=== PATIENT | male | born 1955 | race Caucasian/White ===

== ENCOUNTER 2017-08-19 05:28 | Emergency (ER) | payer MEDICAID ==
[2017-08-19 06:04] VITALS: BP 145/92
--- NOTE | 2017-08-19 06:09 | EDM.PDOC ---
ED HPI GENERAL MEDICAL PROBLEM - General Chief Complaint: Genitourinary Problem Stated Complaint: kidney stone Time Seen by Provider: 08/19/17 05:50 Source of Information: Reports: Patient History Limitations: Reports: No Limitations - History of Present Illness INITIAL COMMENTS - FREE TEXT/NARRATIVE: 62 yr male presents with right sided flank pain. Pain to lower right abdomen and lower right back pain. States pain started around 330am. States he has had a kidney stone in the past and this feels like that. States he has been drinking fluids ok. States pain is intermittent. States BM yesterday and no change in BM. Pt just voided about 50cc urine and states no blood to urine. - Related Data Allergies Allergy/AdvReac Type Severity Reaction Status Date / Time metformin AdvReac Diarrhea Verified 11/18/15 10:54 Home Meds: Home Meds Fish Oil/DHA/EPA [Fish Oil 1,200 MG] 1 cap PO DAILY 03/13/15 [History] Hydrochlorothiazide/Lisinopril [Lisinopril-HCTZ 20-25 MG] 20 - 25 tab PO DAILY 03/13/15 [History] Hydrocortisone/Pramoxine [Procort 1.85%-1.15%] 1 applic RECTAL QID PRN 03/13/15 [History] Lansoprazole [Prevacid] 15 mg PO DAILY 03/13/15 [History] Loratadine [Claritin] 10 mg PO DAILY 03/13/15 [History] Multivitamins [Tab-A-Melissa] 1 tab PO DAILY 03/13/15 [History] Pioglitazone HCl [Actos] 45 mg PO DAILY 03/13/15 [History] Triamcinolone Acetonide [Triamcinolone Acetonide 0.1% Crm] 1 applic TOP BID [History] amLODIPine [Norvasc] 10 mg PO DAILY 03/13/15 [History] Ibuprofen [Ibuprofen] 800 mg PO TID 11/18/15 [History] Orphenadrine [Take Home: Orphenadrine 100 MG, 4 Tab Pack] 10 mg PO BID 11/18/15 [History] Past Medical History HEENT History: Reports: Impaired Vision Cardiovascular History: Reports: Hypertension Respiratory History: Reports: None Gastrointestinal History: Reports: GERD, Other (See Below) Other Gastrointestinal History: HX INTERNAL HEMORRHOIDS Genitourinary History: Reports: None Musculoskeletal History: Reports: Back Pain, Chronic, Osteoarthritis, RA Other Musculoskeletal History: shoulder arthritis, R knee quad tendon repair x2 , fx leg as kid casted Neurological History: Reports: None Psychiatric History: Reports: None Endocrine/Metabolic History: Reports: Diabetes, Type II Other Endocrine/Metabolic History: NIDDM TYPE 2 Hematologic History: Reports: None Immunologic History: Reports: None Oncologic (Cancer) History: Reports: None Dermatologic History: Reports: None - Infectious Disease History Infectious Disease History: Reports: Chicken Pox, Measles - Past Surgical History Other Cardiovascular Surgeries/Procedures: HX HYPERTENSION Musculoskeletal Surgical History: Reports: Hip Replacement, Other (See Below) Other Musculoskeletal Surgeries/Procedures:: Right knee tendon repair x2 Social & Family History - Tobacco Use Smoking Status *Q: Never Smoker Second Hand Smoke Exposure: No - Recreational Drug Use Recreational Drug Use: No ED ROS GENERAL - Review of Systems Review Of Systems: See Below Constitutional: Reports: No Symptoms Respiratory: Reports: No Symptoms. Denies: Shortness of Breath, Wheezing Cardiovascular: Reports: No Symptoms. Denies: Chest Pain GI/Abdominal: Reports: Abdominal Pain, Nausea. Denies: Black Stool, Bloody Stool, Constipation, Diarrhea : Reports: Flank Pain. Denies: Dysuria, Hematuria Musculoskeletal: Reports: No Symptoms. Denies: Neck Pain, Shoulder Pain, Back Pain Skin: Reports: No Symptoms Neurological: Reports: No Symptoms Psychiatric: Reports: No Symptoms Hematologic/Lymphatic: Reports: No Symptoms ED EXAM, RENAL/ - Physical Exam Exam: See Below Exam Limited By: No Limitations General Appearance: Alert, No Apparent Distress Ears: Hearing Grossly Normal Nose: Normal Inspection, Normal Mucosa Throat/Mouth: Normal Lips, Normal Teeth, No Airway Compromise Head: Atraumatic, Normocephalic Neck: Normal Inspection, Supple, Non-Tender Respiratory/Chest: No Respiratory Distress, Lungs Clear, Normal Breath Sounds Cardiovascular: Normal Peripheral Pulses, Regular Rate, Rhythm GI/Abdominal: Normal Bowel Sounds, Soft, Tender (tender to right lower abdomen and into right middle back with palpation). No: Distended, Rigid, Rebound Back Exam: Normal Inspection Extremities: Normal Inspection, Normal Range of Motion Neurological: Alert, Oriented, Normal Cognition, Normal Gait Psychiatric: Normal Affect, Normal Mood Skin Exam: Warm, Normal Color, Other (skin is moist at times, when nausea increases and when pain increases). No: Increased Warmth Lymphatic: No Adenopathy Course - Vital Signs Last Recorded V/S: Last Vital Signs Temp 98.3 F 08/19/17 05:40 Pulse 92 08/19/17 05:40 Resp 12 08/19/17 05:40 BP 145/92 H 08/19/17 05:40 Pulse Ox 97 08/19/17 05:40 - Orders/Labs/Meds Labs: Laboratory Tests 08/19/17 08/19/17 08/19/17 Range/Units 06:08 06:30 06:30 WBC 8.9 (4.0-11.0) K/uL RBC 4.80 (4.50-6.50) M/uL Hgb 14.9 (13.0-18.0) g/dL Hct 44.2 (40.0-54.0) % MCV 92 (76-96) fL MCH 31.0 (27.0-32.0) pg MCHC 33.7 (31.0-35.0) g/dL RDW 15.2 (11.0-16.0) % Plt Count 244 (150-400) K/uL MPV 9.9 (6.0-10.0) fL Neut % (Auto) 74.4 H (45.0-70.0) % Lymph % (Auto) 18.5 L (20.0-40.0) % [place] % (Auto) 5.1 (3.0-10.0) % Eos % (Auto) 1.7 (1.0-5.0) % Baso % (Auto) 0.3 (0.0-0.5) % Neut # (Auto) 6.65 (2.00-7.50) K/uL Lymph # (Auto) 1.65 (1.50-4.00) K/uL [place] # (Auto) 0.46 (0.20-0.80) K/uL Eos # (Auto) 0.15 (0.04-0.40) K/uL Baso # (Auto) 0.03 (0.02-0.10) K/uL Sodium 139 (136-145) mmol/L Potassium 3.2 L (3.5-5.1) mmol/L Chloride 101 (98-107) mmol/L Carbon Dioxide 26.1 (21.0-32.0) mmol/L Anion Gap 15.1 H (5.0-15.0) mmol/L BUN 22 (8-26) mg/dL Creatinine 1.19 D (0.70-1.30) mg/dL Est Cr Clr Drug Dosing 71.55 mL/min Estimated GFR (MDRD) > 60 (>60) MLS/MIN BUN/Creatinine Ratio 18.5 (6-25) Glucose 181 H D (74-100) mg/dL Calcium 9.0 (8.5-10.1) mg/dL Amylase (25-115) U/L Lipase (73-393) U/L Urine Color Yellow Urine Appearance Clear (CLEAR) Urine pH 5.0 (5.0-8.0) Ur Specific [place] >= 1.030 (1.003-1.030) Urine Protein Negative (NEGATIVE) mg/dL Urine Glucose (UA) Negative (NEGATIVE) mg/dL Urine Ketones Negative (NEGATIVE) mg/dL Urine Occult Blood Moderate H (NEGATIVE) Urine Nitrite Negative (NEGATIVE) Urine Bilirubin Negative (NEGATIVE) Urine Urobilinogen 0.2 (0.2-1.0) E.U./dL Ur Leukocyte Esterase Negative (NEGATIVE) Urine RBC 10-20 H /HPF Urine WBC 0-5 H /HPF Ur Squamous Epith Cells Few /HPF 08/19/17 Range/Units 06:30 WBC (4.0-11.0) K/uL RBC (4.50-6.50) M/uL Hgb (13.0-18.0) g/dL Hct (40.0-54.0) % MCV (76-96) fL MCH (27.0-32.0) pg MCHC (31.0-35.0) g/dL RDW (11.0-16.0) % Plt Count (150-400) K/uL MPV (6.0-10.0) fL Neut % (Auto) (45.0-70.0) % Lymph % (Auto) (20.0-40.0) % [place] % (Auto) (3.0-10.0) % Eos % (Auto) (1.0-5.0) % Baso % (Auto) (0.0-0.5) % Neut # (Auto) (2.00-7.50) K/uL Lymph # (Auto) (1.50-4.00) K/uL [place] # (Auto) (0.20-0.80) K/uL Eos # (Auto) (0.04-0.40) K/uL Baso # (Auto) (0.02-0.10) K/uL Sodium (136-145) mmol/L Potassium (3.5-5.1) mmol/L Chloride (98-107) mmol/L Carbon Dioxide (21.0-32.0) mmol/L Anion Gap (5.0-15.0) mmol/L BUN (8-26) mg/dL Creatinine (0.70-1.30) mg/dL Est Cr Clr Drug Dosing mL/min Estimated GFR (MDRD) (>60) MLS/MIN BUN/Creatinine Ratio (6-25) Glucose (74-100) mg/dL Calcium (8.5-10.1) mg/dL Amylase 63 (25-115) U/L Lipase 105 (73-393) U/L Urine Color Urine Appearance (CLEAR) Urine pH (5.0-8.0) Ur Specific [place] (1.003-1.030) Urine Protein (NEGATIVE) mg/dL Urine Glucose (UA) (NEGATIVE) mg/dL Urine Ketones (NEGATIVE) mg/dL Urine Occult Blood (NEGATIVE) Urine Nitrite (NEGATIVE) Urine Bilirubin (NEGATIVE) Urine Urobilinogen (0.2-1.0) E.U./dL Ur Leukocyte Esterase (NEGATIVE) Urine RBC /HPF Urine WBC /HPF Ur Squamous Epith Cells /HPF Meds: Medications Discontinued Medications Generic Name Dose Route Start Last Admin Trade Name Maeve PRN Reason Stop Dose Admin Hydrocodone Bitart/Acetaminophen 10 tab 08/19/17 08:30 [place] 325-5 Mg .ROUTE 08/19/17 08:31 .STK-MED ONE Ketorolac Tromethamine 60 mg 08/19/17 06:11 08/19/17 06:17 Toradol IM 08/19/17 06:12 60 mg ONETIME ONE Administration Ketorolac Tromethamine Confirm 08/19/17 06:12 08/19/17 07:54 Toradol Administered 08/19/17 06:13 Not Given Dose 60 mg .ROUTE .STK-MED ONE Ketorolac Tromethamine 60 mg 08/19/17 06:18 08/19/17 07:54 Toradol IVPUSH 08/19/17 06:19 Not Given ONETIME ONE Methocarbamol 500 mg 08/19/17 08:10 08/19/17 08:14 Robaxin PO 08/19/17 08:11 500 mg ONETIME ONE Administration Methocarbamol Confirm 08/19/17 08:12 08/19/17 08:14 Robaxin Administered 08/19/17 08:13 Not Given Dose 500 mg .ROUTE .STK-MED ONE Ondansetron HCl 4 mg 08/19/17 06:10 08/19/17 06:17 Zofran IVPUSH 08/19/17 06:11 4 mg ONETIME ONE Administration Ondansetron HCl Confirm 08/19/17 06:12 Zofran Administered 08/19/17 06:13 Dose 4 mg .ROUTE .STK-MED ONE Ondansetron HCl 20 mg 08/19/17 08:30 Zofran Odt .ROUTE 08/19/17 08:31 .STK-MED ONE Tamsulosin HCl 2 mg 08/19/17 08:30 Flomax .ROUTE 08/19/17 08:31 .STK-MED ONE Tramadol HCl 50 mg 08/19/17 07:15 08/19/17 07:23 Ultram PO 08/19/17 07:16 50 mg ONETIME ONE Administration - Re-Assessments/Exams Free Text/Narrative Re-Assessment/Exam: 08/19/17 06:46 CT completed, results pending. States pain is improved and nausea is improved. Pt sitting in W/C and taking ice chips. Mouth is dry. 08/19/17 07:54 Pt states pain increased again to 6. Ultram [address] results back with kidney stone 3mm with right hydronephrosis. Stone located just inside the right uretovesical junction. 08/19/[address] Villatoro, urology at [facility] and states small stone and pt should be able to pass this without problems. Pt to be discharged with use of [place], flomax and Zofran for nausea. Pt states so much pain, he can 't think about going home. Reassured pt that pain should improve instead of worsen. Dr Villatoro states pt to manage at home with pain medications and if pain persists through to notify urology and may schedule procedure for Friday for pt. I did review this with the pt. I did consult with Dr Louise, and states renal calculi is at bladder border and pt may pass this and unable to find anything with straining the urine. Discharge to home in no acute distress. Departure - Departure Time of Disposition: 08:40 Disposition: Home, Self-Care 01 Clinical Impression: Renal calculus - Discharge Information Instructions: Kidney Stones, [id number] Referrals: PCP,None [Primary Care Provider] - Forms: ED Department Discharge Additional Instructions: Take [place] 5/325 1-2 tabs every 4 hours for pain as needed. Take Zofran ODT every 4 hours as needed. Take flomax 0.4mg one tab daily x 5 days. Increase fluid intake.
[2017-08-19] MEDS ORDERED: Ondansetron 4 MG/2 ML SDV ONE (06:12)
[2017-08-19] MEDS: Ondansetron 4 MG/2 ML SDV IVPUSH ONE (06:17)
[2017-08-19] MEDS: Ketorolac 60 MG/2 ML SDV IM ONE (06:17)
[2017-08-19] MEDS: traMADol 50 MG Tab PO ONE (07:23)
[2017-08-19] MEDS: Ketorolac 60 MG/2 ML SDV ONE (07:54)
[2017-08-19] MEDS: Ketorolac 60 MG/2 ML SDV IVPUSH ONE (07:54)
[2017-08-19] MEDS: Methocarbamol 500 MG Tab PO ONE (08:14)
[2017-08-19] MEDS: Methocarbamol 500 MG Tab ONE (08:14)
[2017-08-19] MEDS ORDERED: Ondansetron 4 MG Tab.DIS ONE (08:30)
[2017-08-19] MEDS ORDERED: Acetaminophen/HYDROcodone 325-5 MG Tab ONE (08:30)
[2017-08-19] MEDS ORDERED: Tamsulosin 0.4 MG Cap.ER ONE (08:30)
--- NOTE | 2017-08-19 11:10 | CT ---
DATE OF SERVICE: 08/19/17 CLINICAL DATA: probable kidney stone, right flank pain UNENHANCED ABDOMEN AND PELVIC CT: Multislice acquisition through the abdomen and pelvis without IV or oral contrast was performed. Comparison is made to a prior exam dated 11/18/15. There are linear densities in the right lung base consistent with linear atelectasis or fibrosis. The lung bases are otherwise clear. There is a small hiatal hernia. The unenhanced liver appears normal. No focal hepatic lesions. The gallbladder appears normal. The spleen appears normal. The pancreas appears normal. The right and left adrenals appear normal. There is a 2 mm distal ureteral calculus on the right located at the ureterovesical junction. There is mild hydronephrosis and hydroureter proximal to it. The right kidney is mildly swollen and there is mild perinephric fat stranding. This is most likely related to obstruction. Pyelonephritis should at least be considered. The left kidney and collecting system appears unremarkable. The bladder is decompressed. No gross abnormalities. The appendix is absent and there are surgical clips adjacent to the cecum consistent with a prior appendectomy. No free air. No free fluid. No dilated loops of bowel. No adenopathy. No aortic aneurysm. IMPRESSION: A 2 mm distal ureteral calculus on right at ureterovesical junction with obstruction. [id number] [facility]
== END 2017-08-19 08:41 | disposition home or self-care (01) ==
LOC: LB.ED 05:28
DX: N13.2 Hydronephrosis with renal and ureteral calculous obstruction (principal); I10 Essential (primary) hypertension; K21.9 Gastro-esophageal reflux disease without esophagitis; E11.9 Type 2 diabetes mellitus without complications; Z88.8 Allergy status to other drugs, medicaments and biological substances; Z79.899 Other long term (current) drug therapy
CPT/HCPCS: 36415; 74176; 80048; 81001; 82150; 83690; 85025; 99284-25; A9270-GY; J1885; J2405

== ENCOUNTER 2019-06-21 13:55 | Inpatient (IN) | payer MEDICARE, BC ==
[2019-06-21] MEDS ORDERED: cefTRIAXone 1 GM in Sodium Chloride 0.9% 50 ML IV ONE (15:20)
[2019-06-21] MEDS ORDERED: Azithromycin 500 MG AdvVial IV SCH (15:30)
[2019-06-21] MEDS ORDERED: Azithromycin 500 MG in Sodium Chloride 0.9% 250 ML IV SCH (15:30)
[2019-06-21] MEDS ORDERED: cefTRIAXone 1 GM Vial ONE (16:15)
[2019-06-21] MEDS: Sodium Chloride 0.9% 1,000 ML IV SCH ×2 (16:27→22:12)
[2019-06-21] MEDS ORDERED: Non-Formulary Medication 1 Each (Ibuprofen [Ibuprofen] 800 MG) PO PRN (18:54)
[2019-06-21] MEDS ORDERED: Acetaminophen 500 MG Tab PO PRN (19:18)
[2019-06-21] MEDS: Acetaminophen/HYDROcodone 325-10 MG Tab PO PRN (19:28)
[2019-06-21] MEDS: Levalbuterol HCl 1.25 MG/0.5 ML Neb NEB SCH ×2 (19:32→23:57)
[2019-06-21] MEDS ORDERED: Acetaminophen 650 MG Tab.ER PO PRN (19:44)
--- NOTE | 2019-06-21 19:44 | PCM.SN ---
- Free Text/Narrative Note: S: I was contacted by nursing to assess patient status as admitting provider has not answered pages. Patient is tachycardic, tachypneic, and oxygen saturation has decreased some to 88-90. Patient also febrile. Patient also complaining of chest tightness and shoulder pain. He states the shoulder pain is related to surgery that he had on his shoulder. Is also coughing and states that his cough hurts his throat so he is trying not to cough too much. O: General: febrile, flushed HEENT: Normocephalic; eyes clear, PEERLA Neck: Supple with full ROM Lungs: chest symmetric with intercostal retractions bilaterally, tachypneic. Decreased air entry bilateral bases with intermittent expiratory wheezes in all lobes. Cardiovascular: normal S1/S2 without murmur, tachycardic A: Increased respiratory support required. P: 1) Oxygen per NC to keep saturations >92% 2) Continuous oximetry 3) Acetaminophen: 500 mg po q 4 for fever if given with oxycodone; may have 650 mg q 4 hours if given without oxycodone 4) May have Robitussin with codeine as needed for cough 5) Encourage clear liquids by mouth
[2019-06-21] MEDS ORDERED: Codeine/guaiFENesin 10-100 MG/5 ML Syrup 5 ML Cup PO PRN (19:46)
--- NOTE | 2019-06-21 20:30 | CR ---
DATE OF SERVICE: 06/21/2019 CLINICAL DATA: Cough. PA AND LATERAL CHEST: No priors. Patient has taken a poor inspiration. The heart size is within normal limits. There is eventration of the right hemidiaphragm and atelectatic changes in the right lung base. Mild atelectatic changes in the left lung base. There is slight thickening of the minor fissure on the right. The lungs are otherwise clear. No pneumothorax. No pleural effusions. The patient is status post right shoulder arthroplasty. [id number] MTDD
[2019-06-21] MEDS ORDERED: Sodium Chloride 0.9% 1,000 ML IV SCH (21:30)
--- NOTE | 2019-06-21 21:34 | PCM.SN ---
- Free Text/Narrative Note: S: Notified by nursing patient's fever has resolved and oxygen saturation >92% in 2L per NC. Remains tachycardiac. O: Appears comfortable, decreased retractions. A: Tachycardia P: NS fluid bolus: 1,000 mL over 1 hour then resume IVF at 125 mL/hour
[2019-06-22] MEDS: Acetaminophen/HYDROcodone 325-10 MG Tab PO PRN ×3 (01:22→13:48)
[2019-06-22] MEDS: Sodium Chloride 0.9% 1,000 ML IV SCH (04:00)
[2019-06-22] MEDS: Levalbuterol HCl 1.25 MG/0.5 ML Neb NEB SCH ×2 (05:36→11:42)
[2019-06-22] MEDS ORDERED: Non-Formulary Medication 1 Each (Hydrochlorothiazide/Lisinopril [Lisinopril-Hctz 20-25 Mg] PO SCH (08:00)
[2019-06-22] MEDS ORDERED: PIOGLITAZONE HCL 45 MG PO SCH (08:00)
[2019-06-22] MEDS ORDERED: Non-Formulary Medication 1 Each (Lansoprazole [Prevacid] 15 MG) PO SCH (08:00)
[2019-06-22] MEDS: Piperacillin/Tazobactam 4.5 GM in Sodium Chloride 0.9% 100 ML IV SCH ×2 (10:44→14:58)
--- NOTE | 2019-06-22 11:22 | CT ---
DATE OF SERVICE: 06/22/2019 CLINICAL DATA: Shortness of breath Unenhanced chest CT: Multislice acquisition through the chest without IV contrast was performed. No priors. There is eventration of the right hemidiaphragm. There are atelectatic changes in the dependent portion of both lungs and in both lung bases. There is a small area of consolidation in the right lower lobe just above the right hemidiaphragm. Pneumonia should be considered. There are linear densities in both lung bases consistent with linear atelectasis or fibrosis. The lungs are otherwise clear. No pneumothorax. No pleural effusions. The heart size is normal. The pericardium appears thickened probably related to pericardial effusion. Pericarditis should be considered. Echocardiogram should be considered. No hilar or mediastinal adenopathy. No axillary adenopathy. There is a small hiatal hernia. The patient is status post right shoulder arthroplasty. MTDD
[2019-06-22 11:36] VITALS: PULSE 117
[2019-06-22] MEDS ORDERED: Lisinopril 20 MG Tab PO SCH (12:45)
[2019-06-22] MEDS ORDERED: Hydrochlorothiazide 25 MG Tab PO SCH (13:00)
[2019-06-22] MEDS ORDERED: Ibuprofen 600 MG Tab PO SCH (13:15)
[2019-06-22] MEDS ORDERED: Ibuprofen 800 MG Tab PO SCH (14:00)
--- NOTE | 2019-06-22 15:52 | PCM.PN ---
- General Info Date of Service: 06/22/19 Admission Dx/Problem (Free Text): SIRS Subjective Update: Pt states minimal improvement with oxygen, rest and medications. Continues with shortness of breath and fatigue with activity. Functional Status: Reports: Pain Controlled, Tolerating Diet, Urinating, Incentive Spirometry - Review of Systems General: Reports: Fever, Fatigue HEENT: Reports: Sore Throat, Other (states some teeth pain, but recent dental exam). Denies: Ear Pain, Eye Pain, Sinus Congestion, Visual Changes Pulmonary: Reports: Shortness of Breath, Cough. Denies: Sputum Cardiovascular: Reports: Dyspnea on Exertion. Denies: Edema, Lightheadedness Gastrointestinal: Denies: Abdominal Pain, Constipation, Diarrhea, Nausea Genitourinary: Reports: Other (difficulty with urination on/off, attributes to spinal stenosis). Denies: Dysuria, Burning Musculoskeletal: Reports: Neck Pain, Shoulder Pain, Back Pain (States past spinal stenosis and arthritis and some numbness down right leg, but no worse than normal and not flaring at this time). Denies: Leg Pain, Foot Pain Skin: Reports: Diaphoresis (on/off with temperature). Denies: Pruritis, Rash Neurological: Denies: Confusion, Dizziness, Headache Psychiatric: Denies: Confusion - Patient Data Vitals - Most Recent: Last Vital Signs Temp 99.6 F 06/22/19 14:46 Pulse 117 H 06/22/19 11:34 Resp 30 H 06/22/19 11:34 BP 149/62 H 06/22/19 13:23 Pulse Ox 97 06/22/19 11:34 Weight - Most Recent: 332 lb 12.8 oz I&O - Last 24 Hours: Intake & Output 06/22/19 06/22/19 06/22/19 06:59 14:59 22:59 Intake Total 3695 Output Total 450 Balance 3245 Lab Results Last 24 Hours: Laboratory Results - last 24 hr 06/21/19 06/21/19 06/21/19 Range/Units 14:10 14:10 14:13 WBC (4.0-11.0) K/uL RBC (4.50-6.50) M/uL Hgb (13.0-18.0) g/dL Hct (40.0-54.0) % MCV (76-96) fL MCH (27.0-32.0) pg MCHC (31.0-35.0) g/dL RDW (11.0-16.0) % Plt Count (150-400) K/uL MPV (6.0-10.0) fL Neut % (Auto) (45.0-70.0) % Lymph % (Auto) (20.0-40.0) % [place] % (Auto) (3.0-10.0) % Eos % (Auto) (1.0-5.0) % Baso % (Auto) (0.0-0.5) % Neut # (Auto) (2.00-7.50) K/uL Lymph # (Auto) (1.50-4.00) K/uL [place] # (Auto) (0.20-0.80) K/uL Eos # (Auto) (0.04-0.40) K/uL Baso # (Auto) (0.02-0.10) K/uL Sodium 132 L (136-145) mmol/L Potassium 3.8 (3.5-5.1) mmol/L Chloride 94 L (98-107) mmol/L Carbon Dioxide 25.2 (21.0-32.0) mmol/L Anion Gap 16.6 H (5.0-15.0) mmol/L BUN 27 H D (8-26) mg/dL Creatinine 1.16 D (0.70-1.30) mg/dL Est Cr Clr Drug Dosing TNP Estimated GFR (MDRD) > 60 (>60) MLS/MIN BUN/Creatinine Ratio 23.3 (6-25) Glucose 146 H D (74-100) mg/dL Lactic Acid (0.90-1.70) mmol/L Calcium 9.2 (8.5-10.1) mg/dL TSH, Ultra Sensitive 1.268 (0.358-3.740) uIU/mL Urine Color Urine Appearance (CLEAR) Urine pH (5.0-8.0) Ur Specific [place] (1.003-1.030) Urine Protein (NEGATIVE) mg/dL Urine Glucose (UA) (NEGATIVE) mg/dL Urine Ketones (NEGATIVE) mg/dL Urine Occult Blood (NEGATIVE) Urine Nitrite (NEGATIVE) Urine Bilirubin (NEGATIVE) Urine Urobilinogen (0.2-1.0) E.U./dL Ur Leukocyte Esterase (NEGATIVE) Urine RBC /HPF Urine WBC /HPF Ur Squamous Epith Cells /HPF Amorphous Sediment /HPF Hyaline Casts /HPF 06/21/19 06/21/19 06/22/19 Range/Units 16:00 16:30 07:15 WBC (4.0-11.0) K/uL RBC (4.50-6.50) M/uL Hgb (13.0-18.0) g/dL Hct (40.0-54.0) % MCV (76-96) fL MCH (27.0-32.0) pg MCHC (31.0-35.0) g/dL RDW (11.0-16.0) % Plt Count (150-400) K/uL MPV (6.0-10.0) fL Neut % (Auto) (45.0-70.0) % Lymph % (Auto) (20.0-40.0) % [place] % (Auto) (3.0-10.0) % Eos % (Auto) (1.0-5.0) % Baso % (Auto) (0.0-0.5) % Neut # (Auto) (2.00-7.50) K/uL Lymph # (Auto) (1.50-4.00) K/uL [place] # (Auto) (0.20-0.80) K/uL Eos # (Auto) (0.04-0.40) K/uL Baso # (Auto) (0.02-0.10) K/uL Sodium 132 L (136-145) mmol/L Potassium 4.1 (3.5-5.1) mmol/L Chloride 96 L (98-107) mmol/L Carbon Dioxide 24.2 (21.0-32.0) mmol/L Anion Gap 15.9 H (5.0-15.0) mmol/L BUN 28 H (8-26) mg/dL Creatinine 1.06 (0.70-1.30) mg/dL Est Cr Clr Drug Dosing 78.29 Estimated GFR (MDRD) > 60 (>60) MLS/MIN BUN/Creatinine Ratio 26.4 H (6-25) Glucose 165 H (74-100) mg/dL Lactic Acid 1.05 (0.90-1.70) mmol/L Calcium 9.0 (8.5-10.1) mg/dL TSH, Ultra Sensitive (0.358-3.740) uIU/mL Urine Color Yellow Urine Appearance Clear (CLEAR) Urine pH 5.5 (5.0-8.0) Ur Specific [place] 1.020 (1.003-1.030) Urine Protein 30 H (NEGATIVE) mg/dL Urine Glucose (UA) Negative (NEGATIVE) mg/dL Urine Ketones Negative (NEGATIVE) mg/dL Urine Occult Blood Negative (NEGATIVE) Urine Nitrite Negative (NEGATIVE) Urine Bilirubin Small H (NEGATIVE) Urine Urobilinogen 0.2 (0.2-1.0) E.U./dL Ur Leukocyte Esterase Negative (NEGATIVE) Urine RBC Not seen /HPF Urine WBC Not seen /HPF Ur Squamous Epith Cells Few /HPF Amorphous Sediment Few /HPF Hyaline Casts Few /HPF 06/22/19 Range/Units 08:15 WBC 24.8 H* (4.0-11.0) K/uL RBC 4.12 L (4.50-6.50) M/uL Hgb 12.5 L (13.0-18.0) g/dL Hct 37.2 L (40.0-54.0) % MCV 90 (76-96) fL MCH 30.3 (27.0-32.0) pg MCHC 33.6 (31.0-35.0) g/dL RDW 14.6 (11.0-16.0) % Plt Count 265 (150-400) K/uL MPV 9.8 (6.0-10.0) fL Neut % (Auto) 88.1 H (45.0-70.0) % Lymph % (Auto) 7.1 L (20.0-40.0) % [place] % (Auto) 4.0 (3.0-10.0) % Eos % (Auto) 0.7 L (1.0-5.0) % Baso % (Auto) 0.1 (0.0-0.5) % Neut # (Auto) 21.83 H (2.00-7.50) K/uL Lymph # (Auto) 1.76 (1.50-4.00) K/uL [place] # (Auto) 0.98 H (0.20-0.80) K/uL Eos # (Auto) 0.17 (0.04-0.40) K/uL Baso # (Auto) 0.02 (0.02-0.10) K/uL Sodium (136-145) mmol/L Potassium (3.5-5.1) mmol/L Chloride (98-107) mmol/L Carbon Dioxide (21.0-32.0) mmol/L Anion Gap (5.0-15.0) mmol/L BUN (8-26) mg/dL Creatinine (0.70-1.30) mg/dL Est Cr Clr Drug Dosing Estimated GFR (MDRD) (>60) MLS/MIN BUN/Creatinine Ratio (6-25) Glucose (74-100) mg/dL Lactic Acid (0.90-1.70) mmol/L Calcium (8.5-10.1) mg/dL TSH, Ultra Sensitive (0.358-3.740) uIU/mL Urine Color Urine Appearance (CLEAR) Urine pH (5.0-8.0) Ur Specific [place] (1.003-1.030) Urine Protein (NEGATIVE) mg/dL Urine Glucose (UA) (NEGATIVE) mg/dL Urine Ketones (NEGATIVE) mg/dL Urine Occult Blood (NEGATIVE) Urine Nitrite (NEGATIVE) Urine Bilirubin (NEGATIVE) Urine Urobilinogen (0.2-1.0) E.U./dL Ur Leukocyte Esterase (NEGATIVE) Urine RBC /HPF Urine WBC /HPF Ur Squamous Epith Cells /HPF Amorphous Sediment /HPF Hyaline Casts /HPF [place] Results Last 24 Hours: Microbiology 06/21/19 15:43 MRSA Surveillance Culture - Final Nares, Left NO MRSA ISOLATED 06/21/19 15:43 Group A Streptococcus Rapid Screen - Final Throat NEGATIVE STREP A SCREEN REFERENCE RANGE: NEGATIVE 06/21/19 14:13 Influenza Type A Antigen Screen - Final Nasopharyngeal Swab NEGATIVE INFLUENZA A VIRUS AG REFERENCE RANGE: NEGATIVE Influenza Type B Antigen Screen - Final NEGATIVE INFLUENZA B VIRUS AG REFERENCE RANGE: NEGATIVE Med Orders - Current: Current Medications Acetaminophen (Tylenol Extra Strength) 500 mg PO Q6H PRN PRN Reason: Fever Acetaminophen (Tylenol Arthritis Pain) 650 mg PO Q4HR PRN PRN Reason: Fever Hydrocodone Bitart/Acetaminophen ([place] 325-10 Mg) 1 tab PO Q6H PRN PRN Reason: Pain (moderate 4-6) Last Admin: 06/22/19 13:48 Dose: 1 tab Amlodipine Besylate (Norvasc) 10 mg PO BEDTIME [facility] Guaifenesin/Codeine Phosphate (Robitussin Ac) 10 ml PO Q4H PRN PRN Reason: Cough Sodium Chloride (Normal Saline) 1,000 mls @ 125 mls/hr IV ASDIRECTED [facility] Last Admin: 06/22/19 04:00 Dose: 125 mls/hr Sodium Chloride (Normal Saline) 1,000 mls @ 1,000 mls/hr IV ASDIRECTED [facility] Piperacillin Sod/Tazobactam (Sod 4.5 gm/ Sodium Chloride) 100 mls @ 200 mls/hr IV Q6H [facility] Last Admin: 06/22/19 14:58 Dose: 200 mls/hr Ibuprofen (Motrin) 600 mg PO Q8H [facility] Last Admin: 06/22/19 13:30 Dose: 600 mg Levalbuterol HCl (Xopenex) 1.25 mg NEB Q6HR [facility] Last Admin: 06/22/19 11:42 Dose: 1.25 mg Pantoprazole Sodium (Protonix Granules) 40 mg PO BEDTIME [facility] Pioglitazone HCl (Actos) 45 mg PO DAILY [facility] Last Admin: 06/22/19 13:50 Dose: 45 mg Discontinued Medications Amlodipine Besylate (Norvasc) 10 mg PO DAILY [facility] Last Admin: 06/21/19 20:09 Dose: 10 mg Ceftriaxone Sodium (Rocephin) Confirm Administered Dose 1 gm .ROUTE .STK-MED ONE Stop: 06/21/19 16:16 Last Admin: 06/21/19 16:41 Dose: Not Given Hydrochlorothiazide (Hydrochlorothiazide) 25 mg PO DAILY [facility] Hydrochlorothiazide (Hydrochlorothiazide) 25 mg PO DAILY [facility] Stop: 06/22/19 13:01 Last Admin: 06/22/19 13:27 Dose: 25 mg Ceftriaxone Sodium 1 gm/ (Sodium Chloride) 50 mls @ 100 mls/hr IV ONETIME ONE Stop: 06/21/19 15:49 Last Admin: 06/21/19 16:40 Dose: 100 mls/hr Azithromycin 500 mg/ Sodium (Chloride) 250 mls @ 250 mls/hr IV ASDIRECTED [facility] Last Admin: 06/21/19 17:10 Dose: 250 mls/hr Ibuprofen (Motrin) 800 mg PO Q8H [facility] Lisinopril (Prinivil) 20 mg PO DAILY [facility] Lisinopril (Prinivil) 20 mg PO DAILY [facility] Stop: 06/22/19 12:46 Last Admin: 06/22/19 13:23 Dose: 20 mg Non-Formulary Medication (Hydrochlorothiazide/Lisinopril [Lisinopril-Hctz 20-25 Mg]) 20 - 25 tab PO DAILY [facility] Non-Formulary Medication (Ibuprofen [Ibuprofen]) 800 mg PO TID PRN PRN Reason: Pain (mild 1-3) Non-Formulary Medication (Lansoprazole [Prevacid]) 15 mg PO DAILY [facility] Non-Formulary Medication (Pioglitazone Hcl [Actos]) 45 mg PO DAILY [facility] - Exam Quality Assessment: Supplemental Oxygen General: Alert, Oriented, Cooperative, No Acute Distress HEENT: Pupils Reactive, Mucous Membr. Moist/[place] Neck: Supple, Trachea Midline, No JVD Lungs: Decreased Breath Sounds (to bases and end expiratory wheeze noted) Cardiovascular: Regular Rhythm, Tachycardia GI/Abdominal Exam: Normal Bowel Sounds, Soft, Non-Tender, Other (large habitus) . No: Guarding, Rebound Back Exam: No: Paraspinal Tenderness, Vertebral Tenderness Extremities: Non-Tender, Normal Capillary Refill, Other (minimal non pitting edema to ankles and hands.) Peripheral Pulses: 2+: Dorsalis Pedis (L), Dorsalis Pedis (R) Skin: Warm, Dry, Intact Neurological: Normal Speech, Strength Equal Bilateral Psy/Mental Status: Alert, Normal Affect, Normal Mood Sepsis Event Note - Evaluation Sepsis Screening Result: No Definite Risk - Focused Exam Vital Signs: Vital Signs Temp Pulse Resp BP BP Pulse Ox 06/22/19 14:46 99.6 F 06/22/19 13:23 149/62 H 06/22/19 11:34 99.7 F 117 H 30 H 151/68 H 97 06/22/19 07:44 98.5 F 121 H 24 H 152/63 H 96 06/22/19 05:54 98.6 F 113 H 22 H 99 06/22/19 04:00 99 F 107 H 20 131/60 98 Date Exam was Performed: 06/22/19 Time Exam was Performed: 15:47 - Problem List & Annotations (1) SIRS (systemic inflammatory response syndrome) SNOMED Code(s): 071835997 Code(s): R65.10 - SIRS OF NON-INFECTIOUS ORIGIN W/O ACUTE ORGAN DYSFUNCTION Status: Acute Current Visit: Yes (2) Pneumonia SNOMED Code(s): 891635022 Code(s): J18.9 - PNEUMONIA, UNSPECIFIED ORGANISM Status: Acute Current Visit: Yes (3) Diabetes mellitus SNOMED Code(s): 70085995 Code(s): E11.9 - TYPE 2 DIABETES MELLITUS WITHOUT COMPLICATIONS Status: Acute Current Visit: Yes - Problem List Review Problem List Initiated/Reviewed/Updated: Yes - My Orders Last 24 Hours: My Active Orders 06/23/19 07:30 BASIC METABOLIC PANEL,BMP [CHEM] Routine CBC WITH AUTO DIFF [HEME] Routine 06/21/19 15:18 Patient Status [ADT] Routine 06/21/19 15:30 Sodium Chloride 0.9% [Normal Saline] 1,000 ml IV ASDIRECTED 06/21/19 18:53 Acetaminophen/HYDROcodone [[place] 325-10 MG] 1 tab PO Q6H PRN 06/21/19 19:00 Levalbuterol HCl [Xopenex] 1.25 mg NEB Q6HR 06/21/19 Dinner Carbohydrate Counting [Consistent Carbohydrate Diet] [DIET] 06/22/19 08:42 Patient Status [ADT] Routine Oxygen Therapy [RC] PRN Vital Signs [RC] Q4H 06/22/19 09:00 Piperacillin/Tazobactam [Zosyn] 4.5 gm Sodium Chloride 0.9% [Normal Saline] 100 ml IV Q6H 06/22/19 09:50 CULTURE BLOOD [BC] Routine 06/22/19 10:40 CULTURE BLOOD [BC] Routine 06/22/19 12:30 Pioglitazone [Actos] 45 mg PO DAILY 06/22/19 13:15 Ibuprofen [Motrin] 600 mg PO Q8H 06/22/19 20:00 Pantoprazole [ProTONIX Granules] 40 mg PO BEDTIME amLODIPine [Norvasc] 10 mg PO BEDTIME - Plan Plan:: Pt continues with elevated WBC today after Rocephin 1 gm IV and Azithromycin 500 mg IV, Chest x-ray with no consolidation or infiltrates this am. Pt had increase in shortness of breath during noc and Oxygen was started and Tylenol 500 -650 mg PO prn started and guaifenesin w codeine started. Pt is feeling some better this am. Consult with Dr Gali MD, CT of chest ordered, exam completed, blood cultures X 2. Temperature and shortness of breath improves after [place]. Pt has chronic pain of back and joints. He does have Cpap at home and noted improvement when started, Mask became difficult to wear and unable to keep equipment clean and he quit using it. He has been sitting upright in the recliner chair or in bed. Antibiotic changed to Zosyn 4.5 gm IV q 6 hour. Ibuprofen 600 mg PO tid started and Pepcid 40 mg PO started. Awaiting CT results and blood cultures pending. No UTI noted, skin intact, minimal productive cough, xopenex nebulizer q 6 hour given and pt notes improvement with this.
--- NOTE | 2019-06-22 16:10 | PCM.DCSUM1 ---
Discharge Summary - Hospital Course HPI Initial Comments: This patient was admitted to the hospital approximately 24 hours prior for management of pneumonia. Since admission he has developed hypoxia requiring 2L oxygen to keep saturations >90%. He has continued to have tachypnea with retractions and increasing work of breathing. Labs collected this morning revealed little change in WBC count of 24.8. A chest CI obtained today revealed pericardial thickening consistent with pericarditis. An EKG, troponin, and BNP were collected this afternoon. His EKG was significant for frequent PVCs and a history of an anterior infarct. BNP was elevated and troponin was negative. Diagnosis: Stroke: No - Discharge Data Discharge Date: 06/22/19 Discharge Disposition: DC/Tfer to Other 70 Condition: Fair - Referral to Home Health Primary Care Physician: PCP None - Discharge Diagnosis/Problem(s) (1) Pneumonia SNOMED Code(s): 129687028 ICD Code: J18.9 - PNEUMONIA, UNSPECIFIED ORGANISM Status: Acute Priority : Medium Qualifiers: Pneumonia type: due to unspecified organism Laterality: unspecified laterality Lung location: unspecified part of lung Qualified Code(s): J18.9 - Pneumonia, unspecified organism (2) Pericarditis SNOMED Code(s): 8734172 ICD Code: I31.9 - DISEASE OF PERICARDIUM, UNSPECIFIED Status: Acute Priority: Medium Qualifiers: Pericarditis type: unspecified type Chronicity: unspecified Qualified Code(s): I31.9 - Disease of pericardium, unspecified (3) Diabetes mellitus SNOMED Code(s): 78971513 ICD Code: E11.9 - TYPE 2 DIABETES MELLITUS WITHOUT COMPLICATIONS Status: Acute - Discharge Plan *PRESCRIPTION DRUG MONITORING PROGRAM REVIEWED*: Not Applicable Home Medications: Home Meds Hydrochlorothiazide/Lisinopril [Lisinopril-HCTZ 20-25 MG] 20 - 25 tab PO DAILY 03/13/15 [History] Lansoprazole [Prevacid] 15 mg PO DAILY 03/13/15 [History] Loratadine [Claritin] 10 mg PO DAILY 03/13/15 [History] Pioglitazone HCl [Actos] 45 mg PO DAILY 03/13/15 [History] amLODIPine [Norvasc] 10 mg PO DAILY 03/13/15 [History] Acetaminophen [Tylenol Arthritis Pain] 650 mg PO TID PRN 06/22/19 [History] Aspirin [Adult Low Dose Aspirin EC] 81 mg PO DAILY 06/22/19 [History] Naproxen Sodium [Aleve] 220 mg PO BID PRN 06/22/19 [History] Oxygen Therapy Mode: Nasal Cannula Oxygen Flow Rate (L/min): 2 Maintain SpO2% greater than: 92 - Discharge Summary/Plan Comment DC Time >30 min.: Yes Discharge Summary/Plan Comment: Transferred to [facility] - General Info Date of Service: 06/22/19 Admission Dx/Problem (Free Text: Patient tachypneic and denies chest pain. Taking small amounts fluids today but doesn't have much of an appetite today. No vomiting or diarrhea. Subjective Update: Pt states minimal improvement with oxygen, rest and medications. Continues with shortness of breath and fatigue with activity. Functional Status: Reports: Pain Controlled - Review of Systems General: Reports: Fever. Denies: Weakness, Appetite HEENT: Reports: Headaches, Sore Throat. Denies: Ear Pain, Eye Pain Pulmonary: Reports: Shortness of Breath, Cough, Sputum, Wheezing Cardiovascular: Reports: Dyspnea on Exertion, Orthopnea. Denies: Chest Pain Gastrointestinal: Reports: Decreased Appetite, Nausea, Vomiting. Denies: Abdominal Pain Musculoskeletal: Reports: Shoulder Pain Skin: Reports: Pallor, Diaphoresis Neurological: Reports: No Symptoms - Patient Data Vitals - Most Recent: Last Vital Signs Temp 37.6 C 06/22/19 14:46 Pulse 117 H 06/22/19 11:34 Resp 30 H 06/22/19 11:34 BP 149/62 H 06/22/19 13:23 Pulse Ox 97 06/22/19 11:34 Weight - Most Recent: 150.956 kg I&O - Last 24 hours: Intake & Output 06/22/19 06/22/19 06/22/19 06:59 14:59 22:59 Intake Total 3695 Output Total 450 Balance 3245 Lab Results - Last 24 hrs: Laboratory Results - last 24 hr 06/21/19 06/21/19 06/21/19 Range/Units 14:10 14:10 14:13 WBC (4.0-11.0) K/uL RBC (4.50-6.50) M/uL Hgb (13.0-18.0) g/dL Hct (40.0-54.0) % MCV (76-96) fL MCH (27.0-32.0) pg MCHC (31.0-35.0) g/dL RDW (11.0-16.0) % Plt Count (150-400) K/uL MPV (6.0-10.0) fL Neut % (Auto) (45.0-70.0) % Lymph % (Auto) (20.0-40.0) % [place] % (Auto) (3.0-10.0) % Eos % (Auto) (1.0-5.0) % Baso % (Auto) (0.0-0.5) % Neut # (Auto) (2.00-7.50) K/uL Lymph # (Auto) (1.50-4.00) K/uL [place] # (Auto) (0.20-0.80) K/uL Eos # (Auto) (0.04-0.40) K/uL Baso # (Auto) (0.02-0.10) K/uL Sodium 132 L (136-145) mmol/L Potassium 3.8 (3.5-5.1) mmol/L Chloride 94 L (98-107) mmol/L Carbon Dioxide 25.2 (21.0-32.0) mmol/L Anion Gap 16.6 H (5.0-15.0) mmol/L BUN 27 H D (8-26) mg/dL Creatinine 1.16 D (0.70-1.30) mg/dL Est Cr Clr Drug Dosing TNP Estimated GFR (MDRD) > 60 (>60) MLS/MIN BUN/Creatinine Ratio 23.3 (6-25) Glucose 146 H D (74-100) mg/dL Lactic Acid (0.90-1.70) mmol/L Calcium 9.2 (8.5-10.1) mg/dL Troponin I (0.000-0.060) ng/mL B-Natriuretic Peptide (0-125) pg/mL TSH, Ultra Sensitive 1.268 (0.358-3.740) uIU/mL Urine Color Urine Appearance (CLEAR) Urine pH (5.0-8.0) Ur Specific [place] (1.003-1.030) Urine Protein (NEGATIVE) mg/dL Urine Glucose (UA) (NEGATIVE) mg/dL Urine Ketones (NEGATIVE) mg/dL Urine Occult Blood (NEGATIVE) Urine Nitrite (NEGATIVE) Urine Bilirubin (NEGATIVE) Urine Urobilinogen (0.2-1.0) E.U./dL Ur Leukocyte Esterase (NEGATIVE) Urine RBC /HPF Urine WBC /HPF Ur Squamous Epith Cells /HPF Amorphous Sediment /HPF Hyaline Casts /HPF 06/21/19 06/21/19 06/22/19 Range/Units 16:00 16:30 07:15 WBC (4.0-11.0) K/uL RBC (4.50-6.50) M/uL Hgb (13.0-18.0) g/dL Hct (40.0-54.0) % MCV (76-96) fL MCH (27.0-32.0) pg MCHC (31.0-35.0) g/dL RDW (11.0-16.0) % Plt Count (150-400) K/uL MPV (6.0-10.0) fL Neut % (Auto) (45.0-70.0) % Lymph % (Auto) (20.0-40.0) % [place] % (Auto) (3.0-10.0) % Eos % (Auto) (1.0-5.0) % Baso % (Auto) (0.0-0.5) % Neut # (Auto) (2.00-7.50) K/uL Lymph # (Auto) (1.50-4.00) K/uL [place] # (Auto) (0.20-0.80) K/uL Eos # (Auto) (0.04-0.40) K/uL Baso # (Auto) (0.02-0.10) K/uL Sodium 132 L (136-145) mmol/L Potassium 4.1 (3.5-5.1) mmol/L Chloride 96 L (98-107) mmol/L Carbon Dioxide 24.2 (21.0-32.0) mmol/L Anion Gap 15.9 H (5.0-15.0) mmol/L BUN 28 H (8-26) mg/dL Creatinine 1.06 (0.70-1.30) mg/dL Est Cr Clr Drug Dosing 78.29 Estimated GFR (MDRD) > 60 (>60) MLS/MIN BUN/Creatinine Ratio 26.4 H (6-25) Glucose 165 H (74-100) mg/dL Lactic Acid 1.05 (0.90-1.70) mmol/L Calcium 9.0 (8.5-10.1) mg/dL Troponin I (0.000-0.060) ng/mL B-Natriuretic Peptide (0-125) pg/mL TSH, Ultra Sensitive (0.358-3.740) uIU/mL Urine Color Yellow Urine Appearance Clear (CLEAR) Urine pH 5.5 (5.0-8.0) Ur Specific [place] 1.020 (1.003-1.030) Urine Protein 30 H (NEGATIVE) mg/dL Urine Glucose (UA) Negative (NEGATIVE) mg/dL Urine Ketones Negative (NEGATIVE) mg/dL Urine Occult Blood Negative (NEGATIVE) Urine Nitrite Negative (NEGATIVE) Urine Bilirubin Small H (NEGATIVE) Urine Urobilinogen 0.2 (0.2-1.0) E.U./dL Ur Leukocyte Esterase Negative (NEGATIVE) Urine RBC Not seen /HPF Urine WBC Not seen /HPF Ur Squamous Epith Cells Few /HPF Amorphous Sediment Few /HPF Hyaline Casts Few /HPF 06/22/19 06/22/19 Range/Units 08:15 15:25 WBC 24.8 H* (4.0-11.0) K/uL RBC 4.12 L (4.50-6.50) M/uL Hgb 12.5 L (13.0-18.0) g/dL Hct 37.2 L (40.0-54.0) % MCV 90 (76-96) fL MCH 30.3 (27.0-32.0) pg MCHC 33.6 (31.0-35.0) g/dL RDW 14.6 (11.0-16.0) % Plt Count 265 (150-400) K/uL MPV 9.8 (6.0-10.0) fL Neut % (Auto) 88.1 H (45.0-70.0) % Lymph % (Auto) 7.1 L (20.0-40.0) % [place] % (Auto) 4.0 (3.0-10.0) % Eos % (Auto) 0.7 L (1.0-5.0) % Baso % (Auto) 0.1 (0.0-0.5) % Neut # (Auto) 21.83 H (2.00-7.50) K/uL Lymph # (Auto) 1.76 (1.50-4.00) K/uL [place] # (Auto) 0.98 H (0.20-0.80) K/uL Eos # (Auto) 0.17 (0.04-0.40) K/uL Baso # (Auto) 0.02 (0.02-0.10) K/uL Sodium (136-145) mmol/L Potassium (3.5-5.1) mmol/L Chloride (98-107) mmol/L Carbon Dioxide (21.0-32.0) mmol/L Anion Gap (5.0-15.0) mmol/L BUN (8-26) mg/dL Creatinine (0.70-1.30) mg/dL Est Cr Clr Drug Dosing Estimated GFR (MDRD) (>60) MLS/MIN BUN/Creatinine Ratio (6-25) Glucose (74-100) mg/dL Lactic Acid (0.90-1.70) mmol/L Calcium (8.5-10.1) mg/dL Troponin I < 0.017 (0.000-0.060) ng/mL B-Natriuretic Peptide 838 H (0-125) pg/mL TSH, Ultra Sensitive (0.358-3.740) uIU/mL Urine Color Urine Appearance (CLEAR) Urine pH (5.0-8.0) Ur Specific [place] (1.003-1.030) Urine Protein (NEGATIVE) mg/dL Urine Glucose (UA) (NEGATIVE) mg/dL Urine Ketones (NEGATIVE) mg/dL Urine Occult Blood (NEGATIVE) Urine Nitrite (NEGATIVE) Urine Bilirubin (NEGATIVE) Urine Urobilinogen (0.2-1.0) E.U./dL Ur Leukocyte Esterase (NEGATIVE) Urine RBC /HPF Urine WBC /HPF Ur Squamous Epith Cells /HPF Amorphous Sediment /HPF Hyaline Casts /HPF CARI Results - Last 24 hrs: Microbiology 06/21/19 15:43 MRSA Surveillance Culture - Final Nares, Left NO MRSA ISOLATED 06/21/19 15:43 Group A Streptococcus Rapid Screen - Final Throat NEGATIVE STREP A SCREEN REFERENCE RANGE: NEGATIVE 06/21/19 14:13 Influenza Type A Antigen Screen - Final Nasopharyngeal Swab NEGATIVE INFLUENZA A VIRUS AG REFERENCE RANGE: NEGATIVE Influenza Type B Antigen Screen - Final NEGATIVE INFLUENZA B VIRUS AG REFERENCE RANGE: NEGATIVE Med Orders - Current: Current Medications Acetaminophen (Tylenol Extra Strength) 500 mg PO Q6H PRN PRN Reason: Fever Acetaminophen (Tylenol Arthritis Pain) 650 mg PO Q4HR PRN PRN Reason: Fever Hydrocodone Bitart/Acetaminophen ([place] 325-10 Mg) 1 tab PO Q6H PRN PRN Reason: Pain (moderate 4-6) Last Admin: 06/22/19 13:48 Dose: 1 tab Amlodipine Besylate (Norvasc) 10 mg PO BEDTIME [facility] Guaifenesin/Codeine Phosphate (Robitussin Ac) 10 ml PO Q4H PRN PRN Reason: Cough Sodium Chloride (Normal Saline) 1,000 mls @ 125 mls/hr IV ASDIRECTED [facility] Last Admin: 06/22/19 04:00 Dose: 125 mls/hr Sodium Chloride (Normal Saline) 1,000 mls @ 1,000 mls/hr IV ASDIRECTED [facility] Piperacillin Sod/Tazobactam (Sod 4.5 gm/ Sodium Chloride) 100 mls @ 200 mls/hr IV Q6H [facility] Last Admin: 06/22/19 14:58 Dose: 200 mls/hr Ibuprofen (Motrin) 600 mg PO Q8H [facility] Last Admin: 06/22/19 13:30 Dose: 600 mg Levalbuterol HCl (Xopenex) 1.25 mg NEB Q6HR [facility] Last Admin: 06/22/19 11:42 Dose: 1.25 mg Pantoprazole Sodium (Protonix Granules) 40 mg PO BEDTIME [facility] Pioglitazone HCl (Actos) 45 mg PO DAILY [facility] Last Admin: 06/22/19 13:50 Dose: 45 mg Discontinued Medications Amlodipine Besylate (Norvasc) 10 mg PO DAILY [facility] Last Admin: 06/21/19 20:09 Dose: 10 mg Ceftriaxone Sodium (Rocephin) Confirm Administered Dose 1 gm .ROUTE .STK-MED ONE Stop: 06/21/19 16:16 Last Admin: 06/21/19 16:41 Dose: Not Given Hydrochlorothiazide (Hydrochlorothiazide) 25 mg PO DAILY [facility] Hydrochlorothiazide (Hydrochlorothiazide) 25 mg PO DAILY [facility] Stop: 06/22/19 13:01 Last Admin: 06/22/19 13:27 Dose: 25 mg Ceftriaxone Sodium 1 gm/ (Sodium Chloride) 50 mls @ 100 mls/hr IV ONETIME ONE Stop: 06/21/19 15:49 Last Admin: 06/21/19 16:40 Dose: 100 mls/hr Azithromycin 500 mg/ Sodium (Chloride) 250 mls @ 250 mls/hr IV ASDIRECTED [facility] Last Admin: 06/21/19 17:10 Dose: 250 mls/hr Ibuprofen (Motrin) 800 mg PO Q8H [facility] Lisinopril (Prinivil) 20 mg PO DAILY [facility] Lisinopril (Prinivil) 20 mg PO DAILY [facility] Stop: 06/22/19 12:46 Last Admin: 06/22/19 13:23 Dose: 20 mg Non-Formulary Medication (Hydrochlorothiazide/Lisinopril [Lisinopril-Hctz 20-25 Mg]) 20 - 25 tab PO DAILY [facility] Non-Formulary Medication (Ibuprofen [Ibuprofen]) 800 mg PO TID PRN PRN Reason: Pain (mild 1-3) Non-Formulary Medication (Lansoprazole [Prevacid]) 15 mg PO DAILY [facility] Non-Formulary Medication (Pioglitazone Hcl [Actos]) 45 mg PO DAILY [facility] - Exam Quality Assessment: Reports: Supplemental Oxygen General: Reports: Alert, Oriented, Moderate Distress HEENT: Reports: Pupils Equal, Pupils Reactive, EOMI, Mucous Membr. Moist/[place] Neck: Reports: Supple Lungs: Reports: Decreased Breath Sounds, Rales, Wheezing Cardiovascular: Reports: Tachycardia GI/Abdominal Exam: Soft, Non-Tender, No Distention Extremities: Normal Inspection Skin: Reports: Warm, Dry Neurological: Reports: No New Focal Deficit Psy/Mental Status: Reports: Alert EKG INTERPRETATION EKG Date: 06/22/19 [place]: LAD-Left [place] Deviation P-Wave: Present QRS: Normal ST-T: Normal QT: Normal Comparison: NA - No Prior EKG EKG Interpretation Comments: Frequent PVCs
[2019-06-22 17:28] VITALS: BP 128/59
[2019-06-22] MEDS ORDERED: amLODIPine 10 MG Tab PO SCH (20:00)
[2019-06-22] MEDS ORDERED: Pantoprazole 40 MG Delayed-Release Granules 1 Packet PO SCH (20:00)
[2019-06-22] MEDS ORDERED: amLODIPine 10 MG Tab **OWN MED PO SCH (20:15)
[2019-06-23] MEDS ORDERED: Lisinopril 20 MG Tab PO SCH (08:00)
[2019-06-23] MEDS ORDERED: Hydrochlorothiazide 25 MG Tab PO SCH (08:00)
--- NOTE | 2019-06-25 09:03 | PCM.HP.2 ---
H&P History of Present Illness - General Date of Service: 06/22/19 Admit Problem/Dx: Patient tachypneic and denies chest pain. Taking small amounts fluids today but doesn't have much of an appetite today. No vomiting or diarrhea. Source of Information: Patient, RN History Limitations: Reports: No Limitations - History of Present Illness Initial Comments - Free Text/Narative: Pt continues with elevated WBC today after Rocephin 1 gm IV and Azithromycin 500 mg IV, Chest x-ray with no consolidation or infiltrates this am. Pt had increase in shortness of breath during noc and Oxygen was started and Tylenol 500 -650 mg PO prn started and guaifenesin w codeine started. Pt is feeling some better this am. Consult with Dr Gali MD, CT of chest ordered, exam completed, blood cultures X 2. Temperature and shortness of breath improves after [place]. Pt has chronic pain of back and joints. He does have Cpap at home and noted improvement when started, Mask became difficult to wear and unable to keep equipment clean and he quit using it. He has been sitting upright in the recliner chair or in bed. Antibiotic changed to Zosyn 4.5 gm IV q 6 hour. Ibuprofen 600 mg PO tid started and Pepcid 40 mg PO started. Awaiting CT results and blood cultures pending. No UTI noted, skin intact, minimal productive cough, xopenex nebulizer q 6 hour given and pt notes improvement with this. Admit to inpatient with pneumonia. Bilateral Anterior Chest Pain Score (Numeric/FACES): 2 Shoulder Pain Score (Numeric/FACES): 2 Throat Pain Score (Numeric/FACES): 2 Chest Pain Score (Numeric/FACES): 2 - Related Data Allergies/Adverse Reactions: Allergies Allergy/AdvReac Type Severity Reaction Status Date / Time metformin AdvReac Diarrhea Verified 11/18/15 10:54 Home Medications: Home Meds Hydrochlorothiazide/Lisinopril [Lisinopril-HCTZ 20-25 MG] 20 - 25 tab PO DAILY 03/13/15 [History] Lansoprazole [Prevacid] 15 mg PO DAILY 03/13/15 [History] Loratadine [Claritin] 10 mg PO DAILY 03/13/15 [History] Pioglitazone HCl [Actos] 45 mg PO DAILY 03/13/15 [History] amLODIPine [Norvasc] 10 mg PO DAILY 03/13/15 [History] Acetaminophen [Tylenol Arthritis Pain] 650 mg PO TID PRN 06/22/19 [History] Aspirin [Adult Low Dose Aspirin EC] 81 mg PO DAILY 06/22/19 [History] Naproxen Sodium [Aleve] 220 mg PO BID PRN 06/22/19 [History] Past Medical History HEENT History: Reports: Hard of Hearing, Impaired Vision Cardiovascular History: Reports: Hypertension Respiratory History: Reports: None Gastrointestinal History: Reports: GERD, Other (See Below) Other Gastrointestinal History: HX INTERNAL HEMORRHOIDS Genitourinary History: Reports: None Musculoskeletal History: Reports: Back Pain, Chronic, Osteoarthritis, RA Other Musculoskeletal History: shoulder arthritis, R knee quad tendon repair x2 , fx leg as kid casted Neurological History: Reports: None Psychiatric History: Reports: None Endocrine/Metabolic History: Reports: Diabetes, Type II Other Endocrine/Metabolic History: NIDDM TYPE 2 Hematologic History: Reports: None Immunologic History: Reports: None Oncologic (Cancer) History: Reports: None Dermatologic History: Reports: None - Infectious Disease History Infectious Disease History: Reports: Chicken Pox, Measles - Past Surgical History HEENT Surgical History: Reports: None Other Cardiovascular Surgeries/Procedures: HX HYPERTENSION Musculoskeletal Surgical History: Reports: Hip Replacement, Other (See Below) Other Musculoskeletal Surgeries/Procedures:: Right knee tendon repair x2, R shoulder complete reverse replacement Social & Family History - Family History Family Medical History: Noncontributory - Tobacco Use Smoking Status *Q: Never Smoker Second Hand Smoke Exposure: No - Caffeine Use Caffeine Use: Reports: Coffee Caffeine Use Comment: 1 c in morning - Recreational Drug Use Recreational Drug Use: No H&P Review of Systems - Review of Systems: Review Of Systems: See Below General: Reports: Fever, Weakness, Decreased Appetite. Denies: Chills HEENT: Reports: Sinus Congestion, Sore Throat Pulmonary: Reports: Shortness of Breath, Cough Cardiovascular: Reports: Dyspnea on Exertion. Denies: Chest Pain Gastrointestinal: Reports: Decreased Appetite. Denies: Abdominal Pain, Constipation, Diarrhea Genitourinary: Reports: No Symptoms Musculoskeletal: Reports: Neck Pain, Shoulder Pain, Other (Hx of arthritis) Skin: Reports: No Symptoms Psychiatric: Reports: No Symptoms Neurological: Reports: No Symptoms Exam - Exam Exam: See Below - Vital Signs Vital Signs: Last Vital Signs Temp 99.6 F 06/22/19 14:46 Pulse 117 H 06/22/19 11:34 Resp 30 H 06/22/19 11:34 BP 128/59 L 06/22/19 17:19 Pulse Ox 97 06/22/19 11:34 Weight: 332 lb 12.8 oz - Exam Quality Assessment: Supplemental Oxygen General: Alert, Oriented, Cooperative HEENT: Conjunctiva Clear, Mucosa Moist & [place], Pupils Reactive Neck: Supple, Trachea Midline. No: Carotid Bruit, JVD Lungs: Decreased Breath Sounds, Wheezing Cardiovascular: Regular Rhythm, Tachycardia GI/Abdominal Exam: Normal Bowel Sounds, Soft, Non-Tender, Other (rotund, large body habitus). No: Guarding, Rebound Back Exam: No: Paraspinal Tenderness, Vertebral Tenderness Extremities: Normal Capillary Refill, Pedal Edema Peripheral Pulses: 2+: Dorsalis Pedis (L), Dorsalis Pedis (R) Skin: Warm, Dry, Intact Neurological: Strength Equal Bilateral, Normal Speech Neuro Extensive - Mental Status: Alert, Oriented x3, Normal Mood/Affect - Patient Data Result Diagrams: 06/22/19 08:15 06/22/19 07:15 Merlin Results Last 24 hrs: Microbiology 06/22/19 10:40 Aerobic Blood Culture - Preliminary Blood NO GROWTH AFTER 2 DAYS Anaerobic Blood Culture - Preliminary NO GROWTH AFTER 2 DAYS 06/22/19 09:50 Aerobic Blood Culture - Preliminary Blood NO GROWTH AFTER 2 DAYS Anaerobic Blood Culture - Preliminary NO GROWTH AFTER 2 DAYS Sepsis Event Note - Evaluation Sepsis Screening Result: No Definite Risk - Problem List (1) SIRS (systemic inflammatory response syndrome) SNOMED Code(s): 503723192 ICD Code: R65.10 - SIRS OF NON-INFECTIOUS ORIGIN W/O ACUTE ORGAN DYSFUNCTION Status: Acute (2) Pneumonia SNOMED Code(s): 461266540 ICD Code: J18.9 - PNEUMONIA, UNSPECIFIED ORGANISM Status: Acute Priority : Medium Qualifiers: Pneumonia type: due to unspecified organism Laterality: unspecified laterality Lung location: unspecified part of lung Qualified Code(s): J18.9 - Pneumonia, unspecified organism (3) Diabetes mellitus SNOMED Code(s): 81763846 ICD Code: E11.9 - TYPE 2 DIABETES MELLITUS WITHOUT COMPLICATIONS Status: Acute Problem List Initiated/Reviewed/Updated: Yes Assessment/Plan Comment:: Pt continues with elevated WBC today after Rocephin 1 gm IV and Azithromycin 500 mg IV, Chest x-ray with no consolidation or infiltrates this am. Pt had increase in shortness of breath during noc and Oxygen was started and Tylenol 500 -650 mg PO prn started and guaifenesin w codeine started. Pt is feeling some better this am. Consult with Dr Gali MD, CT of chest ordered, exam completed, blood cultures X 2. Temperature and shortness of breath improves after [place]. Pt has chronic pain of back and joints. He does have Cpap at home and noted improvement when started, Mask became difficult to wear and unable to keep equipment clean and he quit using it. He has been sitting upright in the recliner chair or in bed. Antibiotic changed to Zosyn 4.5 gm IV q 6 hour. Ibuprofen 600 mg PO tid started and Pepcid 40 mg PO started. Awaiting CT results and blood cultures pending. No UTI noted, skin intact, minimal productive cough, xopenex nebulizer q 6 hour given and pt notes improvement with this.
== END 2019-06-22 14:40 | disposition other institution (70) | DRG 871 ==
LOC: LB.CLINIC 13:55 → LB.MS 15:18 → OBSVTOIN 06-22 08:42
PROVIDERS: ADMIT Nurse Practitioner Family; ATTEND Nurse Practitioner Family
DX: A41.9 Sepsis, unspecified organism (principal); J18.9 Pneumonia, unspecified organism; I31.9 Disease of pericardium, unspecified; R65.10 Systemic inflammatory response syndrome (SIRS) of non-infectious origin without acute organ dysfunction; E11.9 Type 2 diabetes mellitus without complications; H54.7 Unspecified visual loss; H91.90 Unspecified hearing loss, unspecified ear; I10 Essential (primary) hypertension; K21.9 Gastro-esophageal reflux disease without esophagitis; G89.29 Other chronic pain; M19.90 Unspecified osteoarthritis, unspecified site; M54.9 Dorsalgia, unspecified; M06.9 Rheumatoid arthritis, unspecified; M19.019 Primary osteoarthritis, unspecified shoulder; Z96.649 Presence of unspecified artificial hip joint; Z99.81 Dependence on supplemental oxygen; Z96.611 Presence of right artificial shoulder joint; Z79.899 Other long term (current) drug therapy; Z79.82 Long term (current) use of aspirin; Z88.8 Allergy status to other drugs, medicaments and biological substances
CPT/HCPCS: 36415 ×2; 71046; 80048 ×2; 81001; 83605; 84443; 85025 ×2; 87430; 87804 ×2; 96361; 96365; 96367; A9270 ×4; G0378 ×2; G0379; J0456; J0696; J7030 ×3; J7050 ×2; J7612 ×3; 71250; 83880; 84484; 87040; 93005; A0425; A0429; J2543

== ENCOUNTER 2022-03-30 11:07 | Emergency (ER) | payer MEDICARE, BC ==
[2022-03-30 11:23] VITALS: PULSE 85
[2022-03-30 12:04] VITALS: BP 160/86
== END 2022-03-30 11:55 | disposition home or self-care (01) ==
LOC: LB.ED 11:07
DX: H11.31 Conjunctival hemorrhage, right eye (principal); I10 Essential (primary) hypertension; E11.9 Type 2 diabetes mellitus without complications; E66.9 Obesity, unspecified; Z68.36 Body mass index [BMI] 36.0-36.9, adult
CPT/HCPCS: 99282